=== PATIENT | male | born 1995 | race Caucasian/White ===

== ENCOUNTER 2017-05-31 18:41 | Emergency (ER) | payer OTHER ==
[~2017-05-31] VITALS: Ht 172.7 cm; Wt 111.1 kg
[2017-05-31 19:00] VITALS: BP_SYST 150
--- NOTE | 2017-05-31 21:26 | NUR ---
Patient to ER bed 3 to gown for evaluation. Side rails up. Report given to XIOMARA BLACKWELL.
--- NOTE | 2017-05-31 21:35 | NUR ---
Patient AOx4, ambulatory, presents to ER with complaint of headache x4 days s/p fall with injury to head. Patient states no visual changes. No other symptoms or complaints at this time.
--- NOTE | 2017-05-31 21:50 | NUR ---
ER MD [place] at bedside for medical evaluation.
[2017-05-31] MEDS ORDERED: SUMAtriptan SUCCINATE 50 MG TABLET PO ONE (22:00)
[2017-05-31] MEDS ORDERED: KETOROLAC TROMETHAMINE 30 MG VIAL IM ONE (22:00)
[2017-05-31] MEDS ORDERED: SUMAtriptan SUCCINATE 50 MG TABLET ONE (22:30)
--- NOTE | 2017-05-31 23:10 | NUR ---
No adverse reactions noted after medication administration. Will continue to monitor.
[2017-05-31 23:13] VITALS: BP_SYST 142
--- NOTE | 2017-05-31 23:13 | NUR ---
Patient given written and verbal discharge instructions and verbalizes understanding. ER MD discussed with patient the results and treatment provided. Patient in stable condition. ID arm band removed. Rx of Ibuprofen given. Patient educated on pain management and to follow up with PMD. Pain Scale 0/10. Opportunity for questions provided and answered.
== END 2017-05-31 23:13 | disposition home or self-care (01) ==
LOC: SED 18:41
DX: S06.0X0A Concussion without loss of consciousness, initial encounter (principal); W07.XXXA Fall from chair, initial encounter; Y93.89 Activity, other specified; Y92.89 Other specified places as the place of occurrence of the external cause; Y99.8 Other external cause status
CPT/HCPCS: 70450; 96372; 99284; J1885